=== PATIENT | female | born 1970 | race Two or more races ===

== ENCOUNTER 2018-12-27 20:54 | Emergency (ER) | payer MEDICAID, OTHER ==
[~2018-12-27] VITALS: Ht 160 cm; Wt 88.0 kg
[2018-12-27 21:04] VITALS: BP 120/77
== END 2018-12-27 23:08 | disposition left against medical advice (07) ==
LOC: ER 20:54
DX: M25.561 Pain in right knee (principal); Z53.21 Procedure and treatment not carried out due to patient leaving prior to being seen by health care provider

== ENCOUNTER 2021-05-29 02:25 | Emergency (ER) | payer MEDICAID, OTHER ==
[~2021-05-29] VITALS: Ht 160 cm; Wt 81.8 kg
[2021-05-29 02:38] VITALS: BP 173/82
[2021-05-29] MEDS ORDERED: HYDROcodone/acetaminophen 5mg/325mg tablet PO ONE (04:10)
== END 2021-05-29 05:03 | disposition left against medical advice (07) ==
LOC: ER 02:26
DX: R07.89 Other chest pain (principal); M79.662 Pain in left lower leg; Z98.890 Other specified postprocedural states
CPT/HCPCS: 99283